=== PATIENT | male | born 1985 | race Caucasian/White ===

== ENCOUNTER 2017-12-03 19:06 | Emergency (ER) | payer OTHER, SELFPAY ==
[2017-12-03 19:20] VITALS: BP 142/82; PULSE 88; RESP 18; TEMP 36.7; O2SAT 100; BMI 32.1
--- NOTE | 2017-12-03 20:56 | PC.NURSE ---
Pt states he cut his finger at work with knife. 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 It was bleeding at the time, but is well wrapped with coban. No breakthrough bleeding noted through bandage. Patient denies pain.
[2017-12-03 21:58] VITALS: BP 137/92; PULSE 89; RESP 15; O2SAT 98
--- NOTE | 2017-12-04 06:36 | ED_ITS ---
HPI - Skin/Abscess/Foreign Bdy General Chief complaint: Skin/Abscess/Foreign Body Stated complaint: CUT LEFT POINTER FINGER Time Seen by Provider: 12/03/17 20:31 Source: patient Mode of arrival: ambulatory History of Present Illness HPI narrative: Healthy 32-year-old male presents with and chief complaint of a laceration to the tip of his left index finger. His tetanus is current. 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 It bled significantly on scene and he wrapped it and came to us for further evaluation. He has full range of motion and sensation complaint: laceration Onset (ago): minute(s) Tetanus up to date: yes Location: L hand Severity: mild Quality: burning and aching Pain Consistency: constant Relieving factors: none Exacerbating factors: none Associated symptoms: denies other symptoms Treatments prior to arrival: bandages Related Data Home Medications Medication Instructions Recorded Confirmed No Known Home Medications 12/03/17 12/03/17 Allergies Allergy/AdvReac Type Severity Reaction Status Date / Time No Known Drug Allergies Allergy Verified 12/03/17 19:22 Review of Systems Review of Systems All systems reviewed & are unremarkable except as noted in HPI and below Constitutional Denies chills, Denies fever(s), Denies lethargy and Denies weakness Eyes Denies change in vision, Denies eye discharge, Denies irritation and Denies loss of vision ENT Ears, Nose, Mouth, and Throat: Denies change in voice, Denies neck pain and Denies sore throat Cardiovascular Denies chest pain, Denies irregular heart rhythm, Denies lightheadedness, Denies palpitations, Denies dyspnea, Denies dyspnea on exertion and Denies orthopnea Respiratory Denies cough, Denies dyspnea, Denies dyspnea on exertion and Denies wheezing Gastrointestinal Gastrointestinal: Denies abdominal pain, Denies change in bowel habits, Denies diarrhea, Denies nausea and Denies vomiting Genitourinary Denies hematuria, Denies flank pain, Denies urinary incontinence and Denies urinary urgency Musculoskeletal Denies neck pain Integumentary/Breasts Denies pruritus, Denies erythema, Denies rash and Reports wounds Neurologic Denies confusion, Denies loss of vision and Denies weakness Psychiatric Denies anxiety, Denies confusion, Denies depression, Denies homicidal ideation and Denies suicidal ideation Endocrine Denies palpitations Hematologic/Lymphatic Denies easy bruising Allergic/Immunologic Denies wheezing PFSH Social History Smoking Status: Current every day smoker Exam Narrative Exam Narrative: GEN: AOx3 and in mild distress EYES: Pupils are equal, round, and reactive to light and accommodation. Extraoccular muscles are intact bilaterally. There is no subconjunctival hemorrhage or exudate. CHEST: Lungs are clear to auscultation bilaterally and free of wheezes, rales, or rhonchi. Heart rate is regular rhythm, there are no murmurs, clicks, rubs, or gallops. There is no chest wall tenderness. ABD: Abdomen is soft and nontender. There is no guarding or rebound. Bowel sounds are normal in all 4 quadrants. There is no mass or organomegaly. EXT: Avulsion laceration to dorsal tip of left index finger, there is some loss to the nail and involvement of the nail bed. The bleeding stopped after appropriate pressure. There is nothing to suture. Nursing to place hemostatic gauze and tube gauze Full painless ROM of all extremities with no loss of sensation or strength. SKIN: Warm, pink, and dry. No erythema or rash Initial Vital Signs Initial Vital Signs: Vital Signs Temperature 98.1 F 12/03/17 19:20 Pulse Rate 88 12/03/17 19:20 Respiratory Rate 18 12/03/17 19:20 Blood Pressure 142/82 H 12/03/17 19:20 Pulse Oximetry 100 12/03/17 19:20 Course Vital Signs - 8 hr 12/03/17 19:20 Temperature 98.1 F Pulse Rate 88 Respiratory Rate 18 Blood Pressure 142/82 H Pulse Oximetry 100 Discharge Plan Departure Patient Disposition: Home Clinical Impression: Nailbed laceration, finger Discharge Date/Time: 12/03/17 22:00 Interventions: ED Discharge Assessment Last Done: 12/03/17 21:59 Instructions: DI for Avulsion Laceration (Not Requiring Sutures) Activity Restrictions/Additional Instructions: *You have been diagnosed with [ left index nail bed avulsion laceration not requiring sutures ] *What to do: *Follow up with wound care in 2-3 days, call for an appointment. Let them know you were seen in the Emergency Department and that we ask that you be seen in follow up *Return to ER if you should have any new, worsening or concerning symptoms , such as [ increasing pain, fever over 101 F, other bothersome symptoms] Prescriptions: No Action No Known Home Medications RF: 0 Referrals: Oh Danielle MD [Physician] -
== END 2017-12-03 22:00 | disposition home or self-care (01) ==
PROVIDERS: Emergency Provider Emergency Medicine
DX: S61.211A Laceration without foreign body of left index finger without damage to nail, initial encounter (principal); W26.0XXA Contact with knife, initial encounter
CPT/HCPCS: 99282